=== PATIENT | female | born 1965 | race Caucasian/White ===

== ENCOUNTER 2019-07-03 10:53 | Outpatient (CLI) | payer OTHER, SELFPAY ==
--- NOTE | 2019-07-03 11:11 | XR_ITS ---
WS: [id number] XR cervical spine 3V* [id number] REASON FOR EXAM: NECK PAIN FINDINGS: The odontoid process was normal. The disc spaces and vertebral bodies are all normal. AP projection there is normal positioning of the cervical spine no cervical ribs. XR/XR cervical spine 3V* [id number] IMPRESSION: Negative cervical spine series
--- NOTE | 2019-07-03 11:12 | XR_ITS ---
WS: [id number] XR thoracic spine 2V [id number] REASON FOR EXAM: LUMBAR PAIN FINDINGS: Mild degenerate changes in the mid thoracic area. The disc spaces and vertebral bodies are normal. The lamina, pedicles, spinous processes are all straight. No fractures or other dyscrasias. XR/XR thoracic spine 2V [id number] IMPRESSION: Mild degenerative arthritis midthoracic spine.
--- NOTE | 2019-07-03 11:13 | XR_ITS ---
WS: [id number] XR lumbar spine 2-3V* [id number] REASON FOR EXAM: LUMBAR PAIN FINDINGS: 5 functional lumbar vertebra . The disc spaces and vertebral bodies are all normal. The lamina pedicles, spinous processes are all normal. No evidence of spondylolysis or spondylolisthesis. XR/XR lumbar spine 2-3V* [id number] IMPRESSION: Normal lumbar spine series.
== END 2019-07-03 10:54 | disposition home or self-care (01) ==
PROVIDERS: Visit Provider Internal Medicine
DX: Z02.71 Encounter for disability determination (principal); M54.5 Low back pain; M47.894 Other spondylosis, thoracic region; M54.2 Cervicalgia
CPT/HCPCS: 72040; 72070; 72100

== ENCOUNTER 2019-08-20 09:05 | Outpatient (CLI) | payer SELFPAY ==
--- NOTE | 2019-08-20 | MR_ITS ---
WS: [id number] MRI abdomen with and without contrast. HISTORY: Solitary renal cyst. Multiplanar, multisequence imaging is performed through the abdomen with and without contrast. COMPARISON: Chest CT 01/11/2019 Liver is mildly enlarged with variable signal centrally from hepatic steatosis. No mass. No intrahepa tic or extra hepatic duct dilatation. Gallbladder has been removed. Spleen and pancreas are normal. N o adrenal mass. RIGHT kidney: Normal size. Very slightly lobulated simple cyst measures 2.0 x 2.5 x 1.9 cm from the p osterior upper pole. On the postcontrast imaging there is no enhancement. No renal obstruction or per inephric stranding. LEFT kidney: Normal. No mass or obstruction. Normal aorta. No ascites. No pleural effusion. MR/MR abdomen wo/w con* [id number] IMPRESSION: 1. Simple RIGHT renal cyst measures 2.0 x 2.5 x 1.9 cm from the upper pole. 2. Prior cholecystectomy. 3. Mild hepatic steatosis.
== END 2019-08-20 09:06 | disposition home or self-care (01) ==
LOC: RADSHAW 09:09
PROVIDERS: PCP Nurse Practitioner; Visit Provider Nurse Practitioner
DX: N28.1 Cyst of kidney, acquired (principal); Z90.49 Acquired absence of other specified parts of digestive tract; K76.0 Fatty (change of) liver, not elsewhere classified
CPT/HCPCS: 74183; A9579

== ENCOUNTER 2021-01-06 08:45 | Outpatient (CLI) | payer OTHER, SELFPAY ==
--- NOTE | 2021-01-06 09:00 | MM_ITS ---
WS: [id number] Bilateral diagnostic digital mammogram, 01/06/2021 Clinical Data: MASS IN LT BREAST,SUBAREOLAR Comparison: 06/04/2018 Findings: 2 areas in the upper-outer quadrant left breast were marked. The patient felt soreness and possible n odules. No spiculated masses or clustered calcifications are seen. There were no secondary signs of c arcinoma. The region of the upper outer quadrant of the left breast showed only normal breast tissue. MM/[place] [id number] Impression: 1. Negative bilateral mammogram. 2. Left breast ultrasound will be performed. BIRADS: 2-Benign FOLLOW UP: See Report The CAD bingo checker was used.
--- NOTE | 2021-01-06 09:00 | US_ITS ---
WS: [id number] Left breast ultrasound, 01/06/2021 Clinical Data: MASS IN LT BREAST,SUBAREOLAR Comparison: None. Findings: At the site of the possible palpable nodules at the 4:00 and 11:00 position of the left breast no cys ts or abnormal masses could be seen. There were small mammary ducts in both areas. US/US breast LT limited* [id number] Impression: 1. Probable small mammary ducts at the 4:00 and 11:00 positions left breast. 2. Recommend return to annual screening mammograms. BIRADS: 2-Benign FOLLOW UP: 1 Year Follow-up
== END 2021-01-06 08:46 | disposition home or self-care (01) ==
LOC: RADSHAW 08:52
PROVIDERS: PCP Nurse Practitioner; Visit Provider Nurse Practitioner
DX: N63.42 Unspecified lump in left breast, subareolar (principal)
CPT/HCPCS: 76642; 77066

== ENCOUNTER 2022-07-01 12:32 | Outpatient (CLI) | payer MEDICAID, SELFPAY ==
--- NOTE | 2022-07-01 13:02 | MM_ITS ---
WS: [id number] BILATERAL 3D TOMOSYNTHESIS DIGITAL DIAGNOSTIC MAMMOGRAPHY WITH CAD CLINICAL INFORMATION: LUMP HISTORY: RIGHT breast lump COMPARISON: 2020 TECHNIQUE: Bilateral CC, MLO, and ML views. FINDINGS: Scattered fibroglandular densities bilaterally. Palpable marker RIGHT breast. No underlying parenchym al abnormalities. Ultrasound is pending. Vascular calcification. Well-circumscribed 12 mm ovoid nodule in the 12:00 position appears new since 2020. Ultrasound is pending. Normal bilateral axillary lymph nodes are new from previous. Small ovoid lymph node along RIGHT axill saray tail. No other suspicious findings. ULTRASOUND BREAST BILATERAL TECHNIQUE: Ultrasound bilateral breast focused area of concern. FINDINGS: RIGHT BREAST: Ultrasound RIGHT breast at the 11:00 position 3 cm from the nipple in the area of palpa ble concern demonstrates a tiny incidental cyst measuring 3 mm. No other abnormalities in this region . At the 2:00 position 3 cm from the nipple in the area of palpable concern is normal underlying parenc hymal tissue. LEFT BREAST: Ultrasound LEFT breast at the 12:00 position 3 cm from the nipple demonstrates a simple cyst with through transmission measuring 1.1 x 0.7 x 1.2 cm corresponding to the mammography findings . No other suspicious findings. MM/[place] [id number] IMPRESSION: BI-RADS: 2-Benign FOLLOW UP: 1 Year Follow-up Recommend return to annual screening mammography.
== END 2022-07-01 12:33 | disposition home or self-care (01) ==
PROVIDERS: PCP Nurse Practitioner; Visit Provider Nurse Practitioner
DX: N63.15 Unspecified lump in the right breast, overlapping quadrants (principal)
CPT/HCPCS: 76642; 77062; G0279

== ENCOUNTER 2022-07-18 13:42 | Outpatient (CLI) | payer MEDICAID, SELFPAY ==
--- NOTE | 2022-07-18 13:50 | CT_ITS ---
WS: [id number] CT chest w con* [id number] HISTORY: SHORTNESS OF BREATH/COPD/MILD TOBACCO USE DISORDER TECHNIQUE: Axial imaging performed through the thorax. Coronal and sagittal reformats are submitted. All CT scans at [facility] use at least one of these dose optimization techniques: automated exposure control; mA and/or kV adjustment per patient size (includes targeted exams where dose is mat ched to clinical indication); or iterative reconstruction. CONTRAST: Omnipaque 350; 100 mL IV. DLP: 345.51 mGy.cm COMPARISON: 01/11/2019 Lungs and central airway: Hyperinflated lungs. Mild centrilobular emphysema. Mild interstitial thicke miguel angel in the lower lung hart. Very similar appearance to the prior study from 2019. No pneumonia or mass. Pleura: Normal. No pleural effusion. Heart and pericardium: Normal size heart with no pericardial effusion. Mediastinum and andrew: No mediastinum or hilar adenopathy. Vessels: Mild atherosclerosis aorta. No aneurysm. Normal size pulmonary artery. Chest wall and lower neck: No soft tissue masses. Upper abdomen: Hepatic steatosis. Liver is enlarged. Prior cholecystectomy. No adrenal mass. Osseous structures: No destructive process. CT/CT chest w con* [id number] IMPRESSION: 1. No pneumonia. 2. Chronic emphysema. Very similar appearance of the lungs since 01/11/2019. 3. Hepatic steatosis and hepatomegaly. 4. Prior cholecystectomy.
[2022-07-18] MEDS: iohexol 350 mg/mL 500 mL Btl (per mL) IV (13:53)
== END 2022-07-18 13:43 | disposition home or self-care (01) ==
LOC: RAD 13:45
PROVIDERS: PCP Nurse Practitioner; Visit Provider Nurse Practitioner
DX: R06.02 Shortness of breath (principal); J44.9 Chronic obstructive pulmonary disease, unspecified; K76.0 Fatty (change of) liver, not elsewhere classified; R16.0 Hepatomegaly, not elsewhere classified; Z90.49 Acquired absence of other specified parts of digestive tract
CPT/HCPCS: 71260; Q9967

== ENCOUNTER → 2023-02-02 14:57 | Outpatient (BNVA) | payer MEDICAID, SELFPAY | PROVIDERS: PCP Nurse Practitioner; Visit Provider Internal Medicine Pulmonary Disease | DX: J43.9 Emphysema, unspecified (principal); J44.9 Chronic obstructive pulmonary disease, unspecified; R06.02 Shortness of breath; Z79.899 Other long term (current) drug therapy | CPT/HCPCS: 36415; 80053; 82785; 85025; 86003 ==

== ENCOUNTER → 2023-08-10 09:00 | Outpatient (BNVA) | payer MEDICAID, SELFPAY | PROVIDERS: PCP Family Medicine; Visit Provider Family Medicine | DX: J44.9 Chronic obstructive pulmonary disease, unspecified (principal); D72.829 Elevated white blood cell count, unspecified; E55.9 Vitamin D deficiency, unspecified; R79.89 Other specified abnormal findings of blood chemistry; E83.42 Hypomagnesemia; Z99.81 Dependence on supplemental oxygen | CPT/HCPCS: 80053; 80061; 82306; 82607; 83036; 83735; 84439; 84443; 85025 ==

== ENCOUNTER 2023-08-23 11:31 | Outpatient (CLI) | payer MEDICAID, SELFPAY ==
--- NOTE | 2023-08-23 11:45 | US_ITS ---
WS: [id number] ULTRASOUND SOFT TISSUES LEFT neck HISTORY: R22.1 - Localized swelling, mass and lump, neck COMPARISON: None available. TECHNIQUE: 2-D and color Doppler imaging is submitted. Ultrasound of the palpable area along the LEFT neck corresponds to a normal size ovoid lymph node breann suring 2.5 x 0.9 cm. The cortex is hypoechoic and slightly enlarged. The echogenic fatty hilum is sti ll present but slightly displaced. Mild increased vascularity. The borders are well demarcated consis tent with no extracapsular extension. There are additional smaller lymph nodes with the more normal-a ppearing echogenic hilum. US/US soft tissue head neck [id number] IMPRESSION: Single, mildly abnormal and probably reactive LEFT neck lymph node. If this lym ph node does not resolve or become smaller with antibiotic treatment neck CT wi th IV contrast can be performed to evaluate for additional lymph nodes or the e tiology.
== END 2023-08-23 11:32 | disposition home or self-care (01) ==
LOC: RAD 11:31
PROVIDERS: PCP Family Medicine; Visit Provider Family Medicine
DX: R22.1 Localized swelling, mass and lump, neck (principal)
CPT/HCPCS: 76536

== ENCOUNTER 2023-10-06 15:35 | Outpatient (CLI) | payer MEDICAID, SELFPAY ==
--- NOTE | 2023-10-06 15:45 | CTR_ITS ---
PROCEDURE INFORMATION: Exam: CT Neck With Contrast Exam date and time: 10/06/2023 3:49 PM Age: 58 years old Clinical indication: Other: Localized enlarged lymph nodes; Patient HX: Swollen lymph nodes left side of neck not responding to antibiotics. TECHNIQUE: Imaging protocol: Computed tomography of the neck with contrast. Radiation optimization: All CT scans at this facility use at least one of these dose optimization techniques: automated exposure control; mA and/or kV adjustment per patient size (includes targeted exams where dose is matched to clinical indication); or iterative reconstruction. Contrast material: OMNI 350; Contrast volume: 95 ml; Contrast route: INTRAVENOUS (IV); COMPARISON: US soft tissue head neck [id number] 08/23/2023 11:43 AM RADIATION DOSE METRICS: Total DLP (mGy-cm): 231.11 FINDINGS: Salivary glands: Mildly heterogeneous appearance of the parotid glands with slight enlargement of the left parotid gland under the surface marker. Slight heterogeneous appearance of the submandibular salivary glands also noted without enlargement. Oral cavity: Disc shaped 1.2 cm hypodensity within the oral cavity on top of the tongue may represent a medicinal tablet or piece of lozenge. Pharynx: Unremarkable. No significant tonsillar enlargement. Prevertebral and retropharyngeal spaces: Unremarkable. Larynx: Unremarkable. Epiglottis is normal. Thyroid: A few subcentimeter hypodense nodules in the right thyroid lobe are noted. Trachea: Visualized trachea is unremarkable. Lungs: Mild emphysema in the visualized lung apices. A few scattered lung nodules are present up to 5 mm in diameter. Mild patchy ground-glass opacities in the visualized lung apices. Lymph nodes: No axillary or mediastinal adenopathy within the field of view. Mildly enlarged right submandibular lymph node up to 1.7 cm (series 5, image 80) is noted. Otherwise bilateral cervical lymph nodes are not enlarged by size criteria. Two ovoid hyperdense foci up to 7 mm in diameter (series 3, image 62) and a similar hyperdensity in the left parotid gland likely represent intraparotid lymph nodes. Bones/joints: Unremarkable. No acute fracture. Soft tissues: Unremarkable. No significant soft tissue swelling. CT/CT neck w con* [id number] IMPRESSION: 1. Mildly enlarged heterogeneous parotid glands more than the submandibular salivary glands may indicate primary connective tissue disease or other chronic sialoadenitis. 2. Left-sided surface marker overlies the left parotid gland. Mildly enlarged adjacent left submandibular lymph node is nonspecific and favored to be reactive. Further evaluation /FNA may be considered if there is progressive enlargement. 3. Scattered lung nodules up to 5 mm. Follow-up CT in 1 year vein considered according to the Fleischner guidelines if there are underlying risk factors for pulmonary neoplasia. COMMENTS: Consistent with the [employer]'s Incidental Findings Committee white paper (J Am Chanda Radiol 2015): In patients aged 35 years and older with an incidental thyroid nodule equal to or greater than 1.[address], MRI or extrathyroidal US, further evaluation with dedicated thyroid US is recommended for patients with normal life expectancy and without comorbidities. For smaller nodules without suspicious features, no further evaluation or follow up is recommended.
[2023-10-06] MEDS: iohexol 350 mg/mL 500 mL Btl (per mL) IV (15:52)
== END 2023-10-06 15:36 | disposition home or self-care (01) ==
LOC: RAD 15:37
PROVIDERS: PCP Family Medicine; Visit Provider Nurse Practitioner Family
DX: R59.0 Localized enlarged lymph nodes (principal); K11.1 Hypertrophy of salivary gland; R91.8 Other nonspecific abnormal finding of lung field
CPT/HCPCS: 70491; Q9967

== ENCOUNTER 2023-11-01 15:25 | Outpatient (CLI) | payer MEDICAID, SELFPAY ==
--- NOTE | 2023-11-01 15:20 | MM_ITS ---
WS: [email or web address] BILATERAL 3D TOMOSYNTHESIS DIGITAL SCREENING MAMMOGRAPHY WITH CAD CLINICAL INFORMATION: Z12.39 - Encounter for other screening for malignant neop... HISTORY: Screening mammogram. No current complaints. COMPARISON: 2022 TECHNIQUE: Bilateral CC and MLO views. FINDINGS: The breasts are composed of heterogeneous fibroglandular density tissue, which can limit the detectio n of small underlying mass lesions. No suspicious mass, asymmetry, calcifications, or architectural d istortion. No evidence of malignancy. Stable ovoid nodule LEFT breast previously demonstrated to repr esent a simple cyst. Vascular calcification. Intramammary lymph nodes along the axillary tail. MM/[place] [id number] IMPRESSION: BI-RADS: 2-Benign FOLLOW UP: 1 Year Follow-up Recommend return to annual screening mammography.
== END 2023-11-01 15:26 | disposition home or self-care (01) ==
PROVIDERS: PCP Nurse Practitioner Family; Visit Provider Nurse Practitioner Family
DX: Z12.39 Encounter for other screening for malignant neoplasm of breast (principal); R92.323 Mammographic fibroglandular density, bilateral breasts; R92.1 Mammographic calcification found on diagnostic imaging of breast; N63.20 Unspecified lump in the left breast, unspecified quadrant
CPT/HCPCS: 77063; 77067

== ENCOUNTER 2023-12-27 11:39 | Outpatient (CLI) | payer MEDICAID, SELFPAY ==
[2023-12-28 11:37] LABS: Lymphoma Profile (BBPL) See Report
== END 2023-12-27 11:40 | disposition home or self-care (01) ==
LOC: LAB 11:41
PROVIDERS: PCP Nurse Practitioner Family; Visit Provider Specialist
DX: R22.1 Localized swelling, mass and lump, neck (principal)
CPT/HCPCS: 88184; 88185; 88304

== ENCOUNTER → 2024-01-15 15:35 | Outpatient (BNVA) | payer MEDICAID, SELFPAY | PROVIDERS: PCP Nurse Practitioner Family; Visit Provider Nurse Practitioner Family | DX: R73.09 Other abnormal glucose (principal) | CPT/HCPCS: 83036 ==

== ENCOUNTER → 2024-10-25 14:21 | Outpatient (BNVA) | payer MEDICAID, SELFPAY | PROVIDERS: PCP Nurse Practitioner Family; Visit Provider Nurse Practitioner Family | DX: M19.012 Primary osteoarthritis, left shoulder (principal) | CPT/HCPCS: 73030 ==

== ENCOUNTER 2024-12-04 13:01 | Outpatient (CLI) | payer MEDICAID, SELFPAY ==
--- NOTE | 2024-12-04 13:00 | MM_ITS ---
WS: [id number] SCREENING DIGITAL BREAST TOMOSYNTHESIS MAMMOGRAM WITH CAD HISTORY: SCREENING COMPARISON: 11/01/2023, 07/01/2022 and ultrasound 07/01/2022 Bilateral CC and MLO with tomosynthesis and synthetic mammography submitted. Computer aided detection analyzed. Breast composition: There are scattered areas of fibroglandular density. Round mass with circumscribed margins and increased density is noted at 12:00, just above the nipple line. There is no spiculation. This mass continues to increase in size and was noted to be a cyst on prior studies. No suspicious grouping of calcifications. MM/MM scr BI tomosynthesis [id number] IMPRESSION: BI-RADS: 0 - Incomplete: Need additional imaging evaluation. FOLLOW UP: Need Additional Imaging Solid round mass 12:00 LEFT breast. Prior ultrasound demonstrated a simple cyst . This mass continues to increase in size. Recommend limited LEFT breast ultras ound at this time to ensure this is a simple cyst with no additional soft tissu e component.
== END 2024-12-04 13:02 | disposition home or self-care (01) ==
LOC: MOBLMAM 13:05
PROVIDERS: PCP Nurse Practitioner Family; Visit Provider Nurse Practitioner Family
DX: Z12.31 Encounter for screening mammogram for malignant neoplasm of breast (principal); N63.25 Unspecified lump in the left breast, overlapping quadrants
CPT/HCPCS: 77063; 77067

== ENCOUNTER 2024-12-24 15:08 | Outpatient (CLI) | payer MEDICAID, SELFPAY ==
--- NOTE | 2024-12-24 15:14 | US_ITS ---
WS: [id number] ULTRASOUND LEFT BREAST, limited HISTORY: N63.20 - Unspecified lump in the left breast, unspecified... COMPARISON: Mammogram 12/04/2024, prior breast ultrasound 07/01/2022 TECHNIQUE: 2-D and Doppler. Reidentified is a cystic mass at 12:00, 3 cm from the nipple in the mid to posterior depth. This corresponds to the mammographic finding. There is through transmission. Cyst measures 1.5 x 0.9 x 2.1 cm. No associated soft tissue mass identified. Mass has increased in size since 07/01/2022. US/US breast LT limited* [id number] IMPRESSION: BI-RADS: 2- Benign FOLLOW-UP: 1 Year Follow-up Mass seen on the mammogram is a benign cyst at 12:00 which is increasing in siz e since 07/01/2022. There is no associated solid mass.
== END 2024-12-24 15:09 | disposition home or self-care (01) ==
PROVIDERS: PCP Nurse Practitioner Family; Visit Provider Nurse Practitioner Family
DX: N60.02 Solitary cyst of left breast (principal)
CPT/HCPCS: 76642